=== PATIENT | female | born 1950 | race Caucasian/White ===

== ENCOUNTER 2018-04-15 14:32 | Outpatient (CLI) | payer BC ==
--- NOTE | 2018-04-15 15:21 | MRI ---
MRI OF THE LEFT SHOULDER: DATE: 04/15/18. PROVIDED CLINICAL HISTORY: Left shoulder pain. FINDINGS: There is a low-grade partial thickness undersurface tear involving the posterior distal conjoined ten don at the footplate. There is bursal surface irregularity/low-grade partial thickness tearing invol ving the far anterior distal supraspinatus tendon. The components of the rotator cuff appear otherwi se intact. The long-head biceps tendon appears intact and normally located. The glenoid labrum and glenohumeral articular cartilage are suboptimally evaluated in the absence of joint distention and appear grossly normal. The amount of fluid within the glenohumeral joint appears physiologic. There is slighter greater ramses n physiologic subacromial and subdeltoid bursal fluid. Acromioclavicular joint osteoarthrosis is dem onstrated with mild mass effect upon the subjacent supraspinatus. Rotator cuff muscular volume appea rs preserved. No focal concerning regional marrow or muscular signal abnormality is evident. IMPRESSION: 1. Low-grade partial thickness undersurface tear involving posterior distal conjoined tendon at the footplate. 2. Low-grade partial thickness bursal surface tearing/irregularity involving the anterior distal sup raspinatus tendon. 3. Acromioclavicular joint osteoarthrosis with mass effect upon the subjacent supraspinatus and grea ter than physiologic subacromial subdeltoid bursal fluid. Correlate with concerns for subacromial im pingement.. POS: [facility]
== END 2018-04-15 14:33 | disposition home or self-care (01) ==
LOC: BICMRI 14:32
PROVIDERS: ATTEND Orthopaedic Surgery
DX: M24.812 Other specific joint derangements of left shoulder, not elsewhere classified (principal); S46.912A Strain of unspecified muscle, fascia and tendon at shoulder and upper arm level, left arm, initial encounter; M19.012 Primary osteoarthritis, left shoulder

== ENCOUNTER 2018-07-04 11:15 | Day surgery (SDC) | payer BC ==
[2018-07-01 10:40] VITALS: BMI 49.3
[2018-07-04] MEDS ORDERED: Midazolam HCl 2 mg/2 ml Vial ONE (11:59)
[2018-07-04] MEDS ORDERED: Fentanyl 100 MCG/2 ML VIAL ONE ×2 (11:59→14:55)
[2018-07-04] MEDS ORDERED: Bupivacaine 0.25% HCL 30 ML VIAL ONE (12:25)
[2018-07-04] MEDS ORDERED: Bupivacaine HCl 0.5%/Epinephrine 1:200,000/PF 30 ml Vial ONE (12:25)
[2018-07-04] MEDS ORDERED: PROPOFOL 200 MG/20 ML VIAL ONE (12:39)
[2018-07-04] MEDS ORDERED: ePHEDrine/0.9% NaCl/PF SYRINGE 50 mg/10 ml ONE (12:39)
[2018-07-04] MEDS ORDERED: Ondansetron HCl/PF 4 MG/2 ML Vial ONE (12:39)
[2018-07-04] MEDS ORDERED: PHENYLEPHRINE-NS 100 MCG/ML 10 ML SYRINGE ONE (12:39)
[2018-07-04] MEDS ORDERED: Glycopyrrolate 0.2 MG/ML 5 ML SYRINGE ONE (12:39)
[2018-07-04] MEDS ORDERED: Lidocaine 1% PF 5 ML VIAL ONE (12:39)
[2018-07-04] MEDS ORDERED: Dexamethasone 20 MG/5 ML VIAL ONE (12:39)
[2018-07-04] MEDS ORDERED: Zolpidem Tartrate 5 MG TAB PO PRN (12:49)
[2018-07-04] MEDS ORDERED: HYDROmorphone 2 MG/ML VIAL ONE (12:49)
[2018-07-04] MEDS ORDERED: Promethazine HCl 25 MG/ML VIAL IM PRN (12:49)
[2018-07-04] MEDS ORDERED: Ondansetron HCl/PF 4 MG/2 ML Vial IVP PRN (12:49)
[2018-07-04] MEDS ORDERED: traMADol HCl 50 MG TAB PO PRN ×2 (12:49)
[2018-07-04] MEDS ORDERED: Ketorolac Tromethamine 30 MG/ML VIAL IVP PRN (12:49)
[2018-07-04] MEDS ORDERED: Ropivacaine 0.2% 550 ML 550 ML NERVE BLCK SCH (12:49)
[2018-07-04] MEDS ORDERED: Fentanyl 100 MCG/2 ML VIAL IV PRN (12:50)
[2018-07-04] MEDS ORDERED: HYDROcodone/Acetaminophen 7.5/325 mg Tablet PO PRN ×2 (12:51)
[2018-07-04] MEDS ORDERED: CEFAZOLIN/Water 2 GM/20 ML SYRINGE ONE (13:01)
[2018-07-04] MEDS ORDERED: HYDROcodone/Acetaminophen 5/325 mg Tablet ONE (16:32)
--- NOTE | 2018-07-04 16:54 | EKG ---
Test Reason : PROEP Blood Pressure : / mmHG Vent. Rate : 071 BPM Atrial Rate : 071 BPM P-R Int : 182 ms QRS Dur : 090 ms QT Int : 422 ms P-R-T Axes : 064 -05 034 degrees QTc Int : 458 ms Normal sinus rhythm Cannot rule out Inferior infarct , age undetermined Abnormal ECG No previous ECGs available Confirmed by DR. Nehemias WOODS MD ([id number]) on 07/04/2018 4:54:11 PM Referred By: DEMARCO Confirmed By:DR. Nehemias WOODS MD
--- NOTE | 2018-07-04 20:22 | OP ---
DATE OF PROCEDURE: 07/04/2018 PROCEDURE: 1. Left shoulder subacromial decompression with intra-articular debridement. 2. Open distal clavicle excision. PREOPERATIVEDIAGNOSES: Left shoulder impingement with partial thickness rotator cuff tear and imping ement from the acromioclavicular joint arthritis. POSTOPERATIVE DIAGNOSES: Left shoulder impingement with partial thickness rotator cuff tear and impi ngement from the acromioclavicular joint arthritis. COMPLICATIONS: None. ESTIMATED BLOOD LOSS: Minimal. SURGEON: Prabhu Funk M.D. ANESTHESIA: General plus regional. INDICATIONS: Ms. Hamilton is a 68-year-old female, who has injured her shoulder. 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 She has failed injection and other conservative treatment. She has been i ndicated for the above procedures to restore function and relief pain. Risks have been reviewed in d etail. She elected to proceed with the operation. DESCRIPTION OF PROCEDURE: Ms. Hamilton was identified in the preoperative holding area. Her correct extremity was marked. She was carried to the operating room. She was positioned supine. General a nesthesia was induced. She was converted to the beach chair position. Intravenous antibiotics were administered. The left upper extremity was prepped and draped in sterile fashion. We began the procedure with diagnostic shoulder arthroscopy. The shoulder arthroscope was inserted f rom a posterior portal. We then examined the joint. The patient had grade 2 and 3 changes of the ar ticular surfaces of the glenoid as well as the humeral head. Her rotator cuff was largely intact wit h only superficial fraying. We then inserted a shaver to debride the shoulder from the anterior port al. We debrided back unstable labral tissue and synovitis. Next, we moved to the subacromial space. We performed a thorough subacromial decompression using a shaver as well as a cautery device. We w orked down to the rotator cuff surface and debrided the overlying bursal tissue. We exposed the unde rlying surface of the acromion. At this point, we performed an acromioplasty using a high speed bur. We worked from anterior to posterior and a cutting block technique. At this point, we moved medial ly to the AC joint. Finally, we moved to an open procedure. We made a transverse incision over the AC joint. We dissect ed down through the subcutaneous tissues to the fascia, which was split longitudinally. We then expo sed the distal clavicle. At this point, we used an oscillating saw to remove 8 mm of distal clavicle bone. We smoothed the edges of the acromion and the distal clavicle with the rongeur and a rasp. F inally, we thoroughly irrigated. We closed the deep tissues with 0 Vicryl suture followed by 2-0 Randell ryl suture and nylon for the skin. A sterile dressing was applied. The patient was taken to the rec overy room.
== END 2018-07-04 17:19 | disposition home or self-care (01) ==
LOC: SDC 11:15
PROVIDERS: ATTEND Orthopaedic Surgery
PROC: 0PBB0ZZ Excision of Left Clavicle, Open Approach (ICD-10-PCS; principal; 2018-07-04)
PROC: 0RBK4ZZ Excision of Left Shoulder Joint, Percutaneous Endoscopic Approach (ICD-10-PCS; principal; 2018-07-04)
DX: M75.42 Impingement syndrome of left shoulder (principal); M19.012 Primary osteoarthritis, left shoulder; M75.112 Incomplete rotator cuff tear or rupture of left shoulder, not specified as traumatic; Z79.899 Other long term (current) drug therapy
CPT/HCPCS: 93005; 93010; 96374; A4306; J1170; J2250; J2795; J3010

== ENCOUNTER 2019-06-24 17:36 | Observation (INO) | payer BC, MEDICARE ==
[~2019-06-24 17:36] MED LIST: ISOVUE-370 76%-LOCM 1 ML ONE
[2019-06-24 18:03] LABS: #Basophils 0.1 thou/uL (0.0-0.2); #Eosinphils 0.2 thou/uL (0.0-0.7); #Lymphocytes 2.8 thou/uL (1.20-3.40); #Monocytes 0.9 thou/uL (0.11-0.59); #Neutrophils 5.2 thou/uL (1.40-6.50); %Basophils 1.2 % (0.0-1.0); %Eosinophils 1.8 % (0.0-10.0); %Lymphocytes 30.4 % (21.0-51.0); %Monocytes 9.9 % (0.0-10.0); %Neutrophils 56.6 % (42.0-75.0); Hemoglobin 13.3 g/dL (12.0-16.0); Mean Corpuscular HGB CONC 33.3 g/dL (32.0-36.0); Mean Corpuscular Hemoglobin 28.4 pg (27.0-31.0); Mean Corpuscular Volume 85.1 fL (78.0-98.0); Mean Platelet Volume 9.2 fL (7.4-10.4); Platelet Count 309 thou/uL (130-400); RBC Distribution Width 14.9 % (11.5-14.5); White Blood Cell (WBC) Count 9.2 thou/uL (4.8-10.8)
--- NOTE | 2019-06-24 18:08 | RAD ---
PORTABLE CHEST: 06/24/19 HISTORY: Shortness of breath. Lungs are clear. Heart size upper normal. Vascular markings normal. IMPRESSION: No acute findings. POS: [facility]
[2019-06-24 18:27] LABS: ALT (SGPT) 14 U/L (8-55); AST (SGOT) 21 U/L (5-34); Albumin 4.1 g/dL (3.4-4.8); Alkaline Phosphatase 91 U/L (40-150); Anion Gap 14 mmol/L (10-20); BUN (Urea Nitrogen) 16 mg/dL (9.8-20.1); Bilirubin, Total 0.3 mg/dL (0.2-1.2); Calc. Creatinine Clearance 0 mL/min (70-130); Calcium 9.2 mg/dL (7.8-10.44); Carbon Dioxide 25 mmol/L (23-31); Chloride 105 mmol/L (98-107); Estimated GFR-MDRD 52; Globulin 2.9 g/dL (2.4-3.5); Glucose 85 mg/dL (80-115); Potassium 4.6 mmol/L (3.5-5.1); Sodium 139 mmol/L (136-145)
--- NOTE | 2019-06-24 20:09 | CT ---
CT ANGIO OF CHEST PERFORMED WITH INTRAVENOUS CONTRAST ENHANCEMENT WITH 3D RECONSTRUCTIONS: 06/24/19 HISTORY: Shortness of breath and chest pain. There is a mixed slightly mosaic lung pattern with areas of ground glass opacity and lucency probably on the basis of air trapping. No pleural effusions or pulmonary nodules or confluent infiltrative pr ocess. Thoracic aorta is normal in caliber. The pulmonary artery opacification is not optimal. Patient body habitus also degrades detail. CT Hounsfield unit numbers of only 180 in the central pulmonary arterie s is low. I do not see any signs of any central pulmonary embolus. Peripheral emboli are not excluded on the basis of this exam although no definitive abnormality seen. Visualized liver parenchyma is normal. Postoperative changes of the stomach are seen. IMPRESSION: Limited examination but no CT evidence for pulmonary embolus. POS: [facility]
[2019-06-24] MEDS ORDERED: Aspirin Chewable 81 MG TAB ONE (20:11)
[2019-06-24] MEDS ORDERED: Nitroglycerin 2% Ointment 1 INCH/1 GM Packet ONE (20:11)
[2019-06-24] MEDS ORDERED: Nitroglycerin 0.4 MG TAB (25 Tab Bottle) PO PRN (20:21)
--- NOTE | 2019-06-24 21:04 | PDOC.EVN ---
Event Note - Event Note Event Note: H&P dictated [id number]
[2019-06-24 21:31] LABS: Troponin I Less than 0.010 ng/mL (< 0.028)
[2019-06-24 22:03] LABS: Cardiac Risk 2.9 (Less than 4.5)
[2019-06-24 22:52] VITALS: BMI 52.2
[2019-06-25 00:03] LABS: Troponin I Less than 0.010 ng/mL (< 0.028)
--- NOTE | 2019-06-25 03:20 | HP ---
CHIEF COMPLAINT: Chest pain. HISTORY OF PRESENT ILLNESS: Ms. Hamilton is a 69-year-old female with history of hypertension, ?her condition that she cannot remember the nature of it, obesity, presented to the emergency room with chief complaint of chest pain and shortness of breath that has been going on for the last two days. The pain comes and lasts a few seconds and described as cramping in nature. The pain is worse with deep breathing. Initial workup in the emergency room including cardiac enzymes and EKG are unremarkable. The patient was found to have elevated D-dimer. CT angiogram of the chest was done, which was negative for pulmonary embolism. The patient is being admitted to the hospital for further management and to rule out acute coronary syndrome. PAST MEDICAL HISTORY: 1. Hypertension. 2. Obesity. 3. Undefined cardiac condition? PAST SURGICAL HISTORY: 1. Left knee replacement. 2. Left shoulder surgery. 3. Tonsillectomy. HOME MEDICATIONS: Please see home medication reconciliation form for updated medications. SOCIAL HISTORY: She is a former smoker. Drinks alcohol socially. FAMILY HISTORY: Reviewed and noncontributory. ALLERGIES: NO KNOWN ALLERGIES. REVIEW OF SYSTEMS: Review of 14 systems negative except what is mentioned in history of present illness. PHYSICAL EXAMINATION: VITAL SIGNS: Initial blood pressure was elevated at 208/95, repeat blood pressure is 116/84. Pulse is 77, respiratory rate is 18, pulse oximetry is 97% on room air. HEAD AND NECK: Normocephalic, atraumatic. Neck is supple. No JVD. CHEST: Fair bilateral air entry. HEART: S1, S2, regular. ABDOMEN: Soft, obese. Bowel sounds present. NEUROLOGIC: Awake, alert, oriented x3. PSYCH: Normal mood. EXTREMITIES: No clubbing, no cyanosis. LABORATORY DATA: CBC is unremarkable. D-dimer is 0.72, elevated. Electrolytes unremarkable. Troponin 0.01. CT angiogram of the chest, limited examination with no CT evidence of pulmonary embolism. ASSESSMENT: Joy is a 69-year-old female with past medical history of hypertension, obesity, undefined cardiac condition?, presenting to the emergency room with shortness of breath and chest pain for the last two days. 1. Chest pain, ?Atypical. Given her risk factors, we still need to rule out acute coronary syndrome. 2. Obesity. 3. Hypertension. 4. Shortness of breath. PLAN: 1. Admit. 2. Tele monitoring. 3. Serial cardiac enzymes. 4. Monitor and control blood pressure. 5. Reconcile home medications. 6. DVT prophylaxis, low molecular weight heparin. 7. Reconcile home medications. 8. Expected length of stay at least one midnight if patient is stable and workup is negative. Job ID: [id number]
[2019-06-25 08:03] VITALS: BP 126/73; TEMP 97.2
[2019-06-25] MEDS ORDERED: Aspirin 325 mg Enteric Coated Tablet PO SCH (09:00)
[2019-06-25] MEDS ORDERED: Carvedilol 3.125 MG TAB PO SCH (09:00)
[2019-06-25] MEDS ORDERED: Enoxaparin Sodium 40 MG/0.4 ML SYRINGE SC SCH (09:00)
--- NOTE | 2019-06-25 13:56 | NM ---
NUCLEAR MEDICINE CARDIAC STRESS WITH EF AND WALL MOTION: HISTORY: Chest pain. COMPARISON: None. TECHNIQUE: Stress-only imaging was performed. The patient was administered 32.70 mCi of Technetium 99m sestamib i. Cardiac gating is performed. FINDINGS: Homogeneous distribution of radiotracer in the left ventricle. No defect. End-diastolic volume is 98 mL. End-systolic volume is 37 mL. CARDIAC GBATING: Normal wall motion and thickening. 62% ejection fraction. IMPRESSION: 1. Homogeneous distribution of the radiotracer in the left ventricle. 2. 62% ejection fraction. POS: OFF
--- NOTE | 2019-06-25 14:15 | DIS ---
DATE OF ADMISSION: 06/24/2019 DATE OF DISCHARGE: 06/25/2019 DISCHARGE DIAGNOSES: 1. Atypical chest pain. 2. Obesity. 3. Hypertension. HOSPITAL COURSE: A 69-year-old obese female with known history of hypertension, admitted due to worsening episodic chest pain. The patient reported having intermittent episodic chest pain, which increased in frequency on the day of presentation. Evaluation in the ED was unremarkable except elevated D-dimer. Subsequent CT angio chest was negative for PE. Acute myocardial infarction was ruled out with serial troponin. However, given the patient's increased risk factors of obesity, hypertension and prior paroxysmal tachyarrhthmia, the patient was further evaluated with stress test, which was unremarkable. She remained stable and was discharged to follow up with PCP. PHYSICAL EXAMINATION: VITAL SIGNS: Temperature 97.2, pulse 72, respiratory rate 20, SpO2 of 96% on room air, blood pressure 126/73. GENERAL: Obese female, in no distress. Afebrile. Anicteric. Acyanotic. HEENT: Normocephalic, atraumatic. Oral mucosa is moist. CARDIOVASCULAR: Regular rhythm and rate with normal heart sounds. RESPIRATORY: Fair air entry bilaterally with no obvious crackle or rhonchi or use of accessory muscles. GI: Obese, soft, nontender, nondistended with normal bowel sounds. EXTREMITIES: Grossly normal looking atraumatic with no obvious edema or erythema. STNA: Conscious, alert, and oriented x3 with appropriate mental status. Cranial nerves 2 through 12 are grossly intact. DISCHARGE DISPOSITION: Home. DISCHARGE CONDITION: Stable. FOLLOWUP: With PCP in 7 days. DISCHARGE MEDICATIONS: The patient was restarted on usual home medication. Please see discharge med rec. Job ID: [id number] [facility]
[2019-06-25] MEDS ORDERED: Regadenoson 0.4 MG/5 ML SYRINGE ONE (16:55)
--- NOTE | 2019-07-01 13:21 | EKG ---
Blood Pressure : / mmHG Vent. Rate : 082 BPM Atrial Rate : 082 BPM P-R Int : 176 ms QRS Dur : 082 ms QT Int : 382 ms P-R-T Axes : 023 -14 006 degrees QTc Int : 446 ms Normal sinus rhythm Moderate voltage criteria for LVH, may be normal variant Borderline ECG Confirmed by OSCAR DARDEN ([id number]), commissioning editor ANDRES GARDNER ([id number]) on 07/01/2019 1:20:59 PM Referred By: Confirmed By:OSCAR DARDEN
== END 2019-06-25 15:12 | disposition home or self-care (01) ==
LOC: ERS 17:36 → 2SW 20:16
PROVIDERS: ADMIT Internal Medicine; ATTEND Internal Medicine
DX: R07.89 Other chest pain (principal); I10 Essential (primary) hypertension; R79.1 Abnormal coagulation profile; E66.9 Obesity, unspecified; Z68.43 Body mass index [BMI] 50.0-59.9, adult; Z87.891 Personal history of nicotine dependence; Z79.899 Other long term (current) drug therapy
CPT/HCPCS: 36415; 71045; 71275; 78452; 80053; 80061; 83690; 83880; 84484; 85025; 85379; 93005; 93017; 94760; A9500; G0378; J1650; J2785; Q9966

== ENCOUNTER 2021-10-24 14:32 | Inpatient (IN) | payer MEDICARE, BC ==
[2021-10-24] MEDS ORDERED: Iopamidol-370 76% 500 ML 1 ML ONE (14:43)
[2021-10-24 15:42] LABS: ALT (SGPT) 16 U/L (8-55); AST (SGOT) 19 U/L (5-34); Albumin 2.6 g/dL (3.4-4.8); Alkaline Phosphatase 59 U/L (40-110); Anion Gap 12 mmol/L (10-20); BUN (Urea Nitrogen) 28 mg/dL (9.8-20.1); Bilirubin, Total 0.2 mg/dL (0.2-1.2); Calc. Creatinine Clearance 0 mL/min (70-130); Calcium 7.8 mg/dL (7.8-10.44); Carbon Dioxide 25 mmol/L (23-31); Chloride 106 mmol/L (98-107); Globulin 2.2 g/dL (2.4-3.5); Glucose 148 mg/dL (83-110); Lipase 15 U/L (8-78); Potassium 3.9 mmol/L (3.5-5.1); Protein, Total 4.8 g/dL (5.8-8.1); Sodium 139 mmol/L (136-145)
[2021-10-24 15:44] LABS: Anisocytosis SLIGHT = 6-15 cells (100X) (0-5/hpf); Band 1 % (5-11); Eosinophils 1 % (0-10); Hemoglobin 7.9 g/dL (12.0-16.0); Hypochromia SLIGHT = 6-15 cells (100X) (0-5/hpf); Lymphocytes 35 % (21-51); MDiff Complete? YES; Mean Corpuscular HGB CONC 31.6 g/dL (32.0-36.0); Mean Corpuscular Hemoglobin 23.9 pg (27.0-31.0); Mean Corpuscular Volume 75.6 fL (78.0-98.0); Mean Platelet Volume 8.2 fL (7.4-10.4); Microcytosis SLIGHT = 6-15 cells (100X) (0-5/hpf); Monocytes 8 % (0-10); Neutrophil 54 % (42-75); Ovalocytes SLIGHT = 2-5 cells (100X) (0-1/hpf); Platelet Clumps SLIGHT; Platelet Count 475 thou/uL (130-400); Platelet Morphology Comment Appears Increased; Polychromasia SLIGHT = 2-3 cells (100X) (0-2/hpf); RBC Distribution Width 17.4 % (11.5-14.5); Reactive Lymphocytes 1 % (0-10); Red Blood Cell (RBC) Count 3.29 mill/uL (4.20-5.40); White Blood Cell (WBC) Count 22.7 thou/uL (4.8-10.8)
[2021-10-24] MEDS ORDERED: Tranexamic Acid 1,000 MG/10 ML VIAL ONE (15:45)
[2021-10-24] MEDS ORDERED: Ondansetron PF 4 MG/2 ML Vial ONE (15:45)
[2021-10-24] MEDS ORDERED: Pantoprazole 40 MG VIAL ONE (15:45)
[2021-10-24] MEDS ORDERED: Water For Inject, Bacteriostat 30 ML ONE (15:48)
[2021-10-24] MEDS ORDERED: Piperacillin/Tazobactam 4.5 GM VIAL ONE (16:41)
[2021-10-24] MEDS ORDERED: Fentanyl 100 MCG/2 ML VIAL ONE (17:05)
[2021-10-24] MEDS ORDERED: Vancomycin 1 GM/200 ML BAG ONE (17:08)
[2021-10-24 17:14] LABS: SARS-CoV-2 NAA Rapid Test Not Detected (NotDetected)
[2021-10-24] MEDS ORDERED: Ondansetron PF 4 MG/2 ML Vial IVP PRN (19:15)
[2021-10-24] MEDS ORDERED: Acetaminophen 325 MG TAB PO PRN (19:15)
[2021-10-24] MEDS ORDERED: Ondansetron ODT 4 MG TAB SL PRN (19:15)
[2021-10-24] MEDS ORDERED: HYDROcodone/Acetaminophen 5/325 mg Tablet PO PRN (23:56)
[2021-10-24] MEDS ORDERED: Zolpidem Tartrate 5 MG TAB PO PRN (23:56)
[2021-10-24] MEDS ORDERED: Bisacodyl 5 MG TAB PO PRN (23:56)
[2021-10-24] MEDS ORDERED: Senokot S 8.6-50 MG TAB PO PRN (23:56)
[2021-10-24] MEDS ORDERED: Guaifenesin DM 100-10/5 ML UDCUP PO PRN (23:56)
[2021-10-25 00:36] LABS: Iron 68 ug/dL (50-170); Iron Binding Capacity, Total 288 mcg/dL (265-497)
[2021-10-25] MEDS ORDERED: cefTRIAXone\\ROCEPHIN 1 GM in Sodium Chloride 0.9% 100 ML IVPB SCH (01:00)
[2021-10-25 01:37] VITALS: BMI 54.5
[2021-10-25] MEDS ORDERED: cefTRIAXone\\ROCEPHIN 1 GM VIAL ONE (03:37)
[2021-10-25] MEDS ORDERED: HYDROcodone/Acetaminophen 5/325 mg Tablet ONE (04:04)
[2021-10-25] MEDS ORDERED: Heparin 5,000 UNITS/ML VIAL SC SCH (09:00)
[2021-10-25] MEDS: Azithromycin 250 MG TAB PO SCH (10:43)
[2021-10-25] MEDS: Famotidine 20 MG TAB PO SCH ×2 (10:44→20:05)
[2021-10-25] MEDS: Carvedilol 3.125 MG TAB PO SCH ×2 (10:44→20:04)
[2021-10-25 13:05] LABS: ALT (SGPT) 16 U/L (8-55); AST (SGOT) 41 U/L (5-34); Albumin 2.5 g/dL (3.4-4.8); Alkaline Phosphatase 61 U/L (40-110); Anion Gap 19 mmol/L (10-20); BUN (Urea Nitrogen) 41 mg/dL (9.8-20.1); Bilirubin, Total 0.2 mg/dL (0.2-1.2); Calc. Creatinine Clearance 81 mL/min (70-130); Calcium 8.2 mg/dL (7.8-10.44); Carbon Dioxide 19 mmol/L (23-31); Chloride 114 mmol/L (98-107); Globulin 2.5 g/dL (2.4-3.5); Glucose 109 mg/dL (83-110); Potassium 5.5 mmol/L (3.5-5.1); Sodium 146 mmol/L (136-145)
[2021-10-25] MEDS ORDERED: methylPREDNISolone Sod Succ 40 MG VIAL IVP SCH (14:00)
[2021-10-25] MEDS: Pantoprazole 80 MG in Sodium Chloride 0.9% 100 ML IVPB SCH (14:45)
[2021-10-25 15:06] LABS: ALT (SGPT) 16 U/L (8-55); AST (SGOT) 32 U/L (5-34); Albumin 2.7 g/dL (3.4-4.8); Alkaline Phosphatase 55 U/L (40-110); Anion Gap 15 mmol/L (10-20); BUN (Urea Nitrogen) 38 mg/dL (9.8-20.1); Bilirubin, Total 0.2 mg/dL (0.2-1.2); Calc. Creatinine Clearance 87 mL/min (70-130); Calcium 7.7 mg/dL (7.8-10.44); Carbon Dioxide 22 mmol/L (23-31); Chloride 107 mmol/L (98-107); Globulin 2.3 g/dL (2.4-3.5); Glucose 111 mg/dL (83-110); Potassium 4.2 mmol/L (3.5-5.1); Sodium 140 mmol/L (136-145)
[2021-10-25 15:07] LABS: Anisocytosis SLIGHT = 6-15 cells (100X) (0-5/hpf); Band 3 % (5-11); Hemoglobin 6.2 g/dL (12.0-16.0); Hypochromia MODERATE=16-30 cells (100X) (0-5/hpf); Lymphocytes 28 % (21-51); MDiff Complete? YES; Mean Corpuscular Hemoglobin 24.3 pg (27.0-31.0); Mean Corpuscular Volume 78.3 fL (78.0-98.0); Mean Platelet Volume 8.2 fL (7.4-10.4); Monocytes 7 % (0-10); Neutrophil 62 % (42-75); Ovalocytes SLIGHT = 2-5 cells (100X) (0-1/hpf); Platelet Count 388 thou/uL (130-400); Platelet Morphology Comment Appears Adequate; Polychromasia SLIGHT = 2-3 cells (100X) (0-2/hpf); RBC Distribution Width 17.7 % (11.5-14.5); Red Blood Cell (RBC) Count 2.55 mill/uL (4.20-5.40); White Blood Cell (WBC) Count 33.5 thou/uL (4.8-10.8)
[2021-10-25] MEDS ORDERED: EPINEPHrine 1 MG/ML AMP ONE (16:45)
[2021-10-25] MEDS ORDERED: Sodium Chloride 0.9% 10 ML ONE (16:47)
[2021-10-25] MEDS ORDERED: HYDROmorphone 2 MG/ML VIAL ONE (16:47)
[2021-10-25] MEDS ORDERED: Midazolam HCl 2 mg/2 ml Vial ONE (17:16)
[2021-10-25] MEDS ORDERED: Dexamethasone 20 MG/5 ML VIAL ONE (17:30)
[2021-10-25] MEDS ORDERED: Lidocaine 1% PF 5 ML VIAL ONE (17:30)
[2021-10-25] MEDS ORDERED: PHENYLEPHRINE-NS 100 MCG/ML 10 ML SYRINGE ONE (17:30)
[2021-10-25] MEDS ORDERED: Succinylcholine 200 MG/10 ml SYRINGE FS ONE (17:30)
[2021-10-25] MEDS ORDERED: Ondansetron PF 4 MG/2 ML Vial ONE (17:30)
[2021-10-25] MEDS ORDERED: PROPOFOL 200 MG/20 ML VIAL ONE (17:30)
[2021-10-25] MEDS ORDERED: Piperacillin/Tazobactam 3.375 GM in Sodium Chloride 0.9% 100 ML IVPB SCH (18:00)
[2021-10-25] MEDS ORDERED: Meperidine HCl/PF 25 MG/ML VIAL SLOW IVP PRN (18:18)
[2021-10-25] MEDS ORDERED: HYDROmorphone 2 MG/ML VIAL SLOW IVP PRN (18:18)
[2021-10-25] MEDS ORDERED: Promethazine HCl 25 MG/ML VIAL IVPB PRN (18:18)
[2021-10-25] MEDS ORDERED: hydrALAZINE 20 MG/ML VIAL SLOW IVP PRN (18:18)
[2021-10-25] MEDS ORDERED: Ondansetron HCl/PF 4 MG/2 ML Vial IVP PRN (18:18)
[2021-10-25] MEDS ORDERED: Promethazine HCl 25 MG/ML VIAL IM PRN (18:18)
[2021-10-25] MEDS ORDERED: Fentanyl 100 MCG/2 ML VIAL ONE (18:29)
[2021-10-25] MEDS: Piperacillin/Tazobactam 3.375 GM in Sodium Chloride 0.9% 100 ML IVPB SCH (21:49)
[2021-10-25] MEDS: GoLYTELY 4,000 ml Bottle PO SCH (22:00)
[2021-10-26] MEDS: Pantoprazole 80 MG in Sodium Chloride 0.9% 100 ML IVPB SCH (06:14)
[2021-10-26] MEDS: Piperacillin/Tazobactam 3.375 GM in Sodium Chloride 0.9% 100 ML IVPB SCH ×3 (06:20→22:06)
[2021-10-26] MEDS: Carvedilol 3.125 MG TAB PO SCH ×2 (07:17→21:40)
[2021-10-26] MEDS: Sodium Chloride 0.9% 1,000 ML IV SCH ×3 (08:02→21:41)
[2021-10-26] MEDS ORDERED: PROPOFOL 200 MG/20 ML VIAL ONE (08:19)
[2021-10-26] MEDS ORDERED: Lidocaine 1% PF 5 ML VIAL ONE (08:19)
[2021-10-26] MEDS: Azithromycin 250 MG TAB PO SCH (09:00)
[2021-10-26] MEDS ORDERED: FLU VACC QS2021-22(65YR UP)/PF 240 MCG/0.7 ML SYRINGE IM ONE (09:00)
[2021-10-26] MEDS: Famotidine 20 MG TAB PO SCH ×2 (10:57→21:40)
[2021-10-26] MEDS ORDERED: Albuterol Sulfate 1.25 MG/3 ML NEB EZPAP PRN (12:27)
[2021-10-26 13:40] LABS: Hemoglobin 6.6 g/dL (12.0-16.0); Mean Corpuscular HGB CONC 31.1 g/dL (32.0-36.0); Mean Corpuscular Hemoglobin 24.8 pg (27.0-31.0); Mean Corpuscular Volume 79.8 fL (78.0-98.0); Mean Platelet Volume 8.2 fL (7.4-10.4); Platelet Count 342 thou/uL (130-400); RBC Distribution Width 17.8 % (11.5-14.5); Red Blood Cell (RBC) Count 2.65 mill/uL (4.20-5.40); White Blood Cell (WBC) Count 38.6 thou/uL (4.8-10.8)
[2021-10-26 13:52] LABS: ALT (SGPT) 18 U/L (8-55); AST (SGOT) 35 U/L (5-34); Albumin 2.9 g/dL (3.4-4.8); Alkaline Phosphatase 55 U/L (40-110); Anion Gap 15 mmol/L (10-20); BUN (Urea Nitrogen) 27 mg/dL (9.8-20.1); Bilirubin, Total 0.3 mg/dL (0.2-1.2); Calc. Creatinine Clearance 115 mL/min (70-130); Carbon Dioxide 21 mmol/L (23-31); Chloride 109 mmol/L (98-107); Globulin 2.5 g/dL (2.4-3.5); Glucose 67 mg/dL (83-110); Magnesium 2.1 mg/dL (1.6-2.6); Protein, Total 5.4 g/dL (5.8-8.1); Sodium 141 mmol/L (136-145)
[2021-10-26 14:00] LABS: Anisocytosis SLIGHT = 6-15 cells (100X) (0-5/hpf); Band 4 % (5-11); Hypochromia SLIGHT = 6-15 cells (100X) (0-5/hpf); Lymphocytes 30 % (21-51); MDiff Complete? YES; Monocytes 3 % (0-10); Neutrophil 63 % (42-75); Nucleated RBC 2 % (0); Ovalocytes SLIGHT = 2-5 cells (100X) (0-1/hpf); Platelet Morphology Comment Appears Adequate; Polychromasia SLIGHT = 2-3 cells (100X) (0-2/hpf)
[2021-10-26] MEDS: Pantoprazole 40 MG VIAL IVP SCH (21:40)
[2021-10-26] MEDS: GoLYTELY 4,000 ml Bottle PO SCH (21:41)
[2021-10-27] MEDS: Piperacillin/Tazobactam 3.375 GM in Sodium Chloride 0.9% 100 ML IVPB SCH ×2 (05:31→13:06)
[2021-10-27] MEDS: Sodium Chloride 0.9% 1,000 ML IV SCH (05:31)
[2021-10-27 08:34] VITALS: TEMP 97.7
[2021-10-27] MEDS: Azithromycin 250 MG TAB PO SCH (09:49)
[2021-10-27] MEDS: Famotidine 20 MG TAB PO SCH (09:49)
[2021-10-27] MEDS: Pantoprazole 40 MG VIAL IVP SCH (09:50)
[2021-10-27] MEDS: Carvedilol 3.125 MG TAB PO SCH (09:50)
[2021-10-27 11:10] LABS: Mean Corpuscular HGB CONC 31.4 g/dL (32.0-36.0); Mean Corpuscular Hemoglobin 25.4 pg (27.0-31.0); Mean Corpuscular Volume 80.7 fL (78.0-98.0); Mean Platelet Volume 7.7 fL (7.4-10.4); Platelet Count 334 thou/uL (130-400); RBC Distribution Width 17.6 % (11.5-14.5); Red Blood Cell (RBC) Count 2.75 mill/uL (4.20-5.40); White Blood Cell (WBC) Count 26.7 thou/uL (4.8-10.8)
[2021-10-27 11:28] LABS: Anion Gap 14 mmol/L (10-20); BUN (Urea Nitrogen) 21 mg/dL (9.8-20.1); Calc. Creatinine Clearance 117 mL/min (70-130); Carbon Dioxide 26 mmol/L (23-31); Chloride 108 mmol/L (98-107); Glucose 91 mg/dL (83-110); Potassium 3.5 mmol/L (3.5-5.1); Sodium 144 mmol/L (136-145)
[2021-10-27 12:26] VITALS: BP 151/76
[2021-10-27 15:29] LABS: Anisocytosis SLIGHT = 6-15 cells (100X) (0-5/hpf); Band 2 % (5-11); Eosinophils 2 % (0-10); Hypochromia SLIGHT = 6-15 cells (100X) (0-5/hpf); Lymphocytes 39 % (21-51); MDiff Complete? YES; Mean Corpuscular HGB CONC 31.2 g/dL (32.0-36.0); Mean Corpuscular Hemoglobin 25.6 pg (27.0-31.0); Mean Corpuscular Volume 81.9 fL (78.0-98.0); Mean Platelet Volume 8.1 fL (7.4-10.4); Monocytes 3 % (0-10); Neutrophil 54 % (42-75); Ovalocytes SLIGHT = 2-5 cells (100X) (0-1/hpf); Platelet Count 328 thou/uL (130-400); Platelet Morphology Comment Appears Adequate; Polychromasia SLIGHT = 2-3 cells (100X) (0-2/hpf); RBC Distribution Width 18.1 % (11.5-14.5); Red Blood Cell (RBC) Count 2.73 mill/uL (4.20-5.40); White Blood Cell (WBC) Count 27.3 thou/uL (4.8-10.8)
== END 2021-10-27 16:21 | disposition home or self-care (01) | DRG 193 ==
LOC: ERS 14:32 → ERHOLD 18:59 → NEURO 10-25 06:40
PROVIDERS: ADMIT Family Medicine; ATTEND Internal Medicine
PROC: 30233N1 Transfusion of Nonautologous Red Blood Cells into Peripheral Vein, Percutaneous Approach (ICD-10-PCS; principal; 2021-10-24)
PROC: 0DBA8ZX Excision of Jejunum, Via Natural or Artificial Opening Endoscopic, Diagnostic (ICD-10-PCS; 2021-10-24)
PROC: 0DJD8ZZ Inspection of Lower Intestinal Tract, Via Natural or Artificial Opening Endoscopic (ICD-10-PCS; 2021-10-26)
DX: J18.9 Pneumonia, unspecified organism (principal); J96.01 Acute respiratory failure with hypoxia; K57.31 Diverticulosis of large intestine without perforation or abscess with bleeding; K28.4 Chronic or unspecified gastrojejunal ulcer with hemorrhage; N17.9 Acute kidney failure, unspecified; Z68.43 Body mass index [BMI] 50.0-59.9, adult; J20.9 Acute bronchitis, unspecified; D50.9 Iron deficiency anemia, unspecified; Z20.822 Contact with and (suspected) exposure to COVID-19; I10 Essential (primary) hypertension; Z96.659 Presence of unspecified artificial knee joint; M19.90 Unspecified osteoarthritis, unspecified site; D25.9 Leiomyoma of uterus, unspecified; E66.01 Morbid (severe) obesity due to excess calories; K64.8 Other hemorrhoids; K64.4 Residual hemorrhoidal skin tags; Z98.84 Bariatric surgery status; Z85.3 Personal history of malignant neoplasm of breast; Z79.899 Other long term (current) drug therapy; Z90.89 Acquired absence of other organs; Z87.891 Personal history of nicotine dependence
CPT/HCPCS: 36415; 36430; 70450; 71045; 71275; 74177; 80048; 80053; 82274; 82607; 82728; 82746; 83540; 83550; 83605; 83690; 83735; 83880; 84484; 85007; 85025; 85027; 86850; 86900; 86901; 87040; 87070; 87205; 88305; 88342; 93005; 94640; 96365; 96367; 96375; C9113; J0171; J0696; J1100; J1170; J2250; J2405; J2543; J2704; J2920; J3010; J3370; J3490; J7050; J7620; P9016; Q9967; U0002

== ENCOUNTER 2021-11-04 16:00 | Emergency (ER) | payer MEDICARE, BC ==
[2021-11-04 18:16] LABS: #Basophils 0.1 thou/uL (0.0-0.2); #Eosinphils 0.1 thou/uL (0.0-0.7); #Neutrophils 4.9 thou/uL (1.40-6.50); %Basophils 0.8 % (0.0-1.0); %Eosinophils 0.8 % (0.0-10.0); %Lymphocytes 14.3 % (21.0-51.0); %Monocytes 14.2 % (0.0-10.0); %Neutrophils 69.9 % (42.0-75.0); Hemoglobin 7.7 g/dL (12.0-16.0); Mean Corpuscular HGB CONC 31.5 g/dL (32.0-36.0); Mean Corpuscular Hemoglobin 25.8 pg (27.0-31.0); Mean Corpuscular Volume 81.7 fL (78.0-98.0); Mean Platelet Volume 7.5 fL (7.4-10.4); Platelet Count 543 thou/uL (130-400); RBC Distribution Width 19.6 % (11.5-14.5)
[2021-11-04 18:46] LABS: ALT (SGPT) 12 U/L (8-55); AST (SGOT) 17 U/L (5-34); Albumin 3.6 g/dL (3.4-4.8); Alkaline Phosphatase 70 U/L (40-110); Anion Gap 13 mmol/L (10-20); BUN (Urea Nitrogen) 15 mg/dL (9.8-20.1); Bilirubin, Total 0.2 mg/dL (0.2-1.2); Calc. Creatinine Clearance 0 mL/min (70-130); Calcium 8.5 mg/dL (7.8-10.44); Carbon Dioxide 22 mmol/L (23-31); Chloride 105 mmol/L (98-107); Globulin 2.9 g/dL (2.4-3.5); Glucose 112 mg/dL (83-110); Potassium 3.7 mmol/L (3.5-5.1); Protein, Total 6.5 g/dL (5.8-8.1); Sodium 136 mmol/L (136-145)
== END 2021-11-04 21:03 | disposition home or self-care (01) ==
LOC: ERS 16:00
DX: D64.9 Anemia, unspecified (principal); I51.7 Cardiomegaly; R06.02 Shortness of breath; R53.1 Weakness; R00.0 Tachycardia, unspecified; Z72.3 Lack of physical exercise; I10 Essential (primary) hypertension; E66.9 Obesity, unspecified; Z68.45 Body mass index [BMI] 70 or greater, adult; Z87.891 Personal history of nicotine dependence
CPT/HCPCS: 36415; 71045; 80053; 84484; 85025; 93005